=== PATIENT | male | born 1985 | race Two or more races ===

== ENCOUNTER 2022-04-15 14:40 | Emergency (ER) | payer OTHER ==
[~2022-04-15] VITALS: Ht 182.9 cm; Wt 108.9 kg
[2022-04-15] MEDS ORDERED: NORFLEX100MG PO (16:18)
[2022-04-15] MEDS ORDERED: KETO10TA2 PO (16:18)
== END 2022-04-15 16:27 | disposition home or self-care (01) ==
LOC: ER 14:40
DX: M54.2 Cervicalgia (principal)